=== PATIENT | female | born 1975 | race Two or more races ===

== ENCOUNTER → 2020-04-28 | Emergency (ER) | payer MEDICAID ==
[~2020-04-28] VITALS: Ht 170.2 cm; Wt 90.7 kg
[~2020-04-28] MED LIST: BENADRYL25 MG ORAL; DiphenhydrAMINE 50mg/ml Inj IVP ONE; EPIPEN 2-P0.3 MG/0.3 IM; Ketorolac 30mg Inj IV ONE; PREDNISONE20 MG ORAL; Solu-MEDROL 125mg Inj IVP ONE
--- NOTE | 2020-04-28 00:15 | NUR ---
ED Nurse Note: Patient was brought in by ambulance with complaints of allergic reaction to shrimp. Patient ate shrimp 40 mins ago and face and tongue got swollen. Epi IM and benadryl iv per ems given. Patient has g22 at left wrist. Patient is AAOX4 and ambulatory. Place on monitor bed
[2020-04-28 00:20] VITALS: BP 180/79
--- NOTE | 2020-04-28 00:24 | Emergency Room Report ---
History of Present Illness General Chief Complaint: Allergic Reaction Source: Patient Present Illness HPI This a 44-year-old female with history of asthma. She presents with chief plane of allergic reaction. She says she ate shrimp tonight and afterward her neck and throat swell up. Also times while up. She had strep before without any issue. She called 911 and was given Benadryl and 25 of epinephrine. She says symptoms improved. She is complaining of pain with swallowing. Mildly short of breath. No wheezing. No rash. Not on any other medication. Worse with swallowing. Better with rest. Better with epinephrine. Allergies: Coded Allergies: Shrimp (Verified Allergy, Severe, Anaphylaxis, 04/28/20) ACETAMINOPHEN (Verified Allergy, Unknown, 04/28/20) COVID-19 Screening Contact w/high risk pt: No Recent Travel to affected area: No Experienced COVID-19 symptoms?: No COVID-19 Testing performed [employer]: No Patient History Past Medical History: see triage record, old chart reviewed, asthma Past Surgical History: none Pertinent Family History: none Social History: Denies: smoking Last Menstrual Period: NA Now: No Immunizations: other Reviewed Nursing Documentation: PMH: Agreed; PSxH: Agreed Review of Systems Eye: Denies: eye pain, blurred vision ENT: Denies: ear pain, nose congestion, throat swelling Respiratory: Reports: shortness of breath; Denies: cough Cardiovascular: Denies: chest pain, palpitations Gastrointestinal: Denies: abdominal pain, diarrhea, nausea, vomiting Musculoskeletal: Denies: back pain, joint pain Skin: Denies: rash Neurological: Denies: headache, numbness Endocrine: Denies: increased thirst, increased urine Hematologic/Lymphatic: Denies: easy bruising All Other Systems: negative except mentioned in HPI Physical Exam Vital Signs Date Time Temp Pulse Resp B/P (MAP) Pulse Ox O2 Delivery O2 Flow Rate FiO2 04/28/20 00:09 98.6 110 18 180/79 (112) 97 Room Air Vitals with high blood pressure Sp02 EP Interpretation: reviewed, normal General Appearance: well appearing, no apparent distress, alert, mild distress Head: normocephalic, atraumatic Eyes: bilateral eye PERRL, bilateral eye EOMI ENT: hearing grossly normal, other - Mild tender edema. She has edema to the left cheek and submental area. There is edema but is soft. Neck: full range of motion, supple, no meningismus Respiratory: chest non-tender, lungs clear, normal breath sounds Cardiovascular #1: regular rate, rhythm, no murmur Gastrointestinal: normal bowel sounds, non tender, no mass, no organomegaly, no bruit, non-distended Musculoskeletal: back normal, normal range of motion, gait/station normal Psychiatric: mood/affect normal Medical Decision Making Diagnostic Impression: Primary Impression: Allergic angioedema Qualified Codes: T78.3XXA - Angioneurotic edema, initial encounter ER Course Patient presents with allergic angioedema secondary to shrimp. She required epinephrine injection by EMS. Better after Benadryl, Solu-Medrol and Pepcid IV here. She is back to baseline now. Will discharge home. Last Vital Signs Date Time Temp Pulse Resp B/P (MAP) Pulse Ox O2 Delivery O2 Flow Rate FiO2 04/28/20 00:09 98.6 110 18 180/79 (112) 97 Room Air Status: improved Disposition: HOME, SELF-CARE Condition: Stable Scripts Prednisone* (PREDNISONE*) 20 Mg Tablet 40 MG ORAL DAILY, #6 TAB Prov: Sandro Worley MD 04/28/20 Diphenhydramine Hcl* (BENADRYL*) 25 Mg Capsule 50 MG ORAL Q6H PRN for Itching, #30 CAP Prov: Sandro Worley MD 04/28/20 Epinephrine (Epipen 2-Bernardo) 0.3 Mg/0.3 Ml Auto.injct 0.3 MG IM ONCE, #1 EA Prov: Sandro Worley MD 04/28/20 Patient Instructions: Food Allergy Additional Instructions: Follow-up with your doctor within 7 days. You would benefit from allergy testing to see what else you are allergic to. Avoid shrimps. Return if symptoms worsen. Sandro Worley MD Apr 28, 2020 00:24
[2020-04-28 00:36] LABS: BASOPHILS % (AUTO) 0.7 % (0.0-2.0); EOSINOPHILS % (AUTO) 1.4 % (0.0-3.0); HEMATOCRIT 29.1 % (37.0-47.0); HEMOGLOBIN 8.3 G/DL (12.0-16.0); LYMPHOCYTES % (AUTO) 42.9 % (20.0-45.0); MEAN CORPUSCULAR VOLUME 55 FL (80-99); MONOCYTES % (AUTO) 5.6 % (1.0-10.0); NEUTROPHILS % (AUTO) 49.4 % (45.0-75.0); PLATELET COUNT 395 K/UL (150-450); RED BLOOD COUNT 5.28 M/UL (4.20-5.40); RED CELL DISTRIBUTION WIDTH 14.9 % (11.6-14.8); WHITE BLOOD COUNT 8.6 K/UL (4.8-10.8)
[2020-04-28 00:45] LABS: ANION GAP 8 mmol/L (5-15); BLOOD UREA NITROGEN 21 mg/dL (7-18); CALCIUM 8.7 MG/DL (8.5-10.1); CARBON DIOXIDE 30 MMOL/L (21-32); CHLORIDE 105 MMOL/L (98-107); CREATININE 0.9 MG/DL (0.55-1.30); POTASSIUM 3.4 MMOL/L (3.5-5.1); SODIUM 143 MMOL/L (136-145)
[2020-04-28 02:20] VITALS: BP 116/53
[2020-04-28 05:09] VITALS: BP 132/72
--- NOTE | 2020-04-28 05:10 | NUR ---
ER DISCHARGE NOTE: Patient is cleared to be discharged per ERMD, pt is aox4, on room air, with stable vital signs. pt was given dc and prescription instructions, pt was able to verbalize understanding, pt id band and iv site removed without complications. pt is able to ambulate with steady gait. pt took all belongings.
== END | disposition home or self-care (01) ==
LOC: EDBD 00:07 → EMR 00:26
DX: T78.3XXA Angioneurotic edema, initial encounter (principal); X58.XXXA Exposure to other specified factors, initial encounter; Y92.9 Unspecified place or not applicable; Z88.6 Allergy status to analgesic agent; Z91.013 Allergy to seafood
CPT/HCPCS: 36415; 80048; 85025; 96374; 96375; J1200; J1885; J2930; S0028; Z7502; 99284